=== PATIENT | male | born 1990 ===

== ENCOUNTER → 2018-12-29 | Emergency (ER) | payer OTHER ==
[~2018-12-29] VITALS: Ht 180.3 cm; Wt 127.9 kg
== END | disposition home or self-care (01) ==
LOC: ER 11:34
DX: T59.891A Toxic effect of other specified gases, fumes and vapors, accidental (unintentional), initial encounter (principal); R06.02 Shortness of breath; Y92.69 Other specified industrial and construction area as the place of occurrence of the external cause